=== PATIENT | female | born 1975 | race Caucasian/White ===

== ENCOUNTER 2017-01-27 13:02 | Emergency (ER) | payer OTHER ==
[2017-01-27] MEDS ORDERED: Tetan/Diph/Pertus SYR(Tdap)* 0.5 ML SYR(BOOSTRIX) use SYR IM ONE (13:44)
--- NOTE | 2017-01-27 13:51 | ED ---
Laceration/Wound HPI - HPI Summary HPI Summary: 41F presents with laceration to right brar s/p dropping a knife on her brar. She is able to ambulate. Bleeding is controlled at this time. She denies any numbness or tingling. She does not know when her last tetanus was. She has full ROM of her lower extremities. - History of Current Complaint Stated Complaint: CUT LOWER RT EXTREMITY Time Seen by Provider: 01/27/17 13:17 Pain Intensity: 0 - Allergy/Home Medications Allergies/Adverse Reactions: Allergies Allergy/AdvReac Type Severity Reaction Status Date / Time No Known Allergies Allergy Verified 05/14/14 11:59 PMH/Surg Hx/FS Hx/Imm Hx Endocrine/Hematology History: Denies: Hx Anticoagulant Therapy - Cancer History Hx Chemotherapy: No Hx Radiation Therapy: No Infectious Disease History: Denies: Traveled Outside the [place] in Last 30 Days - Family History Known Family History: Positive: Cardiac Disease - Social History Alcohol Use: Occasionally Substance Use Type: Reports: None Smoking Status (MU): Never Smoked Tobacco Review of Systems Negative: Fever Negative: Chest Pain Negative: Shortness Of Breath Positive: Other - laceration right brar All Other Systems Reviewed And Are Negative: Yes Physical Exam Triage Information Reviewed: Yes Vital Signs On Initial Exam: Initial Vitals Temp Pulse Resp BP Pulse Ox 98.3 F 82 16 140/84 96 01/27/17 13:07 01/27/17 13:07 01/27/17 13:07 01/27/17 13:07 01/27/17 13:07 Vital Signs Reviewed: Yes Appearance: Positive: Well-Appearing Skin: Positive: Warm, Dry, Other - 1cm superifical laceration of right brar Head/Face: Positive: Normal Head/Face Inspection Eyes: Positive: Normal, Conjunctiva Clear Respiratory/Lung Sounds: Positive: Clear to Auscultation, Breath Sounds Present Cardiovascular: Positive: Normal, RRR Musculoskeletal: Positive: Strength/ROM Intact - right lower leg, Other - good pulses Procedures - Laceration/Wound Repair 1 Location: lower extremity - right brar Description: Linear Length, Depth and Shape: 1cm superficial Irrigated w/ Saline (ccs): 50 Closure: Skin Adhesive, SteriStrips Diagnostics - Vital Signs Vital Signs Temp Pulse Resp BP Pulse Ox 01/27/17 13:07 98.3 F 82 16 140/84 96 - Laboratory Lab Statement: Any lab studies that have been ordered have been reviewed, and results considered in the medical decision making process. Laceration Repair Course/Dx - Course Course Of Treatment: 41F presents with laceration to right brar s/p dropping a knife on her brar. She is able to ambulate. gave tetanus. laceration is superificial so placed glue on area. patietn understands and agrees with plan - Differential Dx Differental Diagnoses: Abrasion, Avulsion, Laceration - Clinical Impression Provider Diagnoses: Laceration of right lower extremity Discharge - Discharge Plan Condition: Good Disposition: HOME Patient Education Materials: Skin Adhesive Care (ED) Referrals: Nadege White MD [Primary Care Provider] - Additional Instructions: Place ice on area Take Tylenol for pain as needed every 6 hours Glue will fall off on own Avoid scrubbing area Use sunscreen on area after laceration has healed Return to ED if develop any signs of infection or any new or worsening symptoms
[2017-01-27 14:37] VITALS: BP 123/79
== END 2017-01-27 14:37 | disposition home or self-care (01) ==
LOC: ED 13:02
DX: S81.811A Laceration without foreign body, right lower leg, initial encounter (principal); W26.0XXA Contact with knife, initial encounter; Y93.9 Activity, unspecified; Y92.9 Unspecified place or not applicable; Y99.9 Unspecified external cause status
CPT/HCPCS: 90715; 96372; 99281